=== PATIENT | female | born 1935 | race African-American/Black ===

== ENCOUNTER 2018-01-13 10:00 | Emergency (ER) | payer MEDICARE, BC ==
[~2018-01-13] VITALS: Ht 170.2 cm; Wt 78.0 kg
[~2018-01-13 10:00] MED LIST: HYDR25TA PO; RIVA10TA PO; VALS160T2 PO
[2018-01-13] MEDS ORDERED: SODIUM CHLORIDE 0.9% 1,000 ML IV ONE (10:22)
[2018-01-13 10:36] LABS: BASOPHILS % 1.5 % (0.0-2.0); HEMATOCRIT. 31.5 % (36.0-48.0); HEMOGLOBIN. 10.1 g/dL (12.0-16.0); LYMPHOCYTES % 25.4 % (20.0-50.0); MEAN CORPUSCULAR HEMOGLOBIN 24.9 pg (28.0-32.0); MEAN CORPUSCULAR VOLUME 77.4 fL (81.0-99.0); MEAN PLATELET VOLUME 8.1 fl (7.4-10.4); MONOCYTES % 10.3 % (2.0-8.0); NEUTROPHILS % 60.8 % (40.0-76.0); PLATELET 324 x1000/uL (130-400); RED BLOOD CELL COUNT 4.07 mill/uL (4.2-5.4); RED CELL DISTRIBUTION WIDTH 17.3 % (11.6-14.6)
[2018-01-13 10:41] LABS: CHLORIDE 104 mEq/L (98-107)
[2018-01-13 10:45] LABS: PARTIAL THROMBOPLASTIN TIME 25.6 sec (23.4-31.0); PROTHROMBIN TIME 10.8 sec (9.4-11.6)
[2018-01-13 14:48] VITALS: BP 113/59
== END 2018-01-13 14:51 | disposition left against medical advice (07) ==
LOC: ER 10:17
DX: R55 Syncope and collapse (principal); I48.91 Unspecified atrial fibrillation; Z91.19 Patient's noncompliance with other medical treatment and regimen; Z96.659 Presence of unspecified artificial knee joint
CPT/HCPCS: 36415; 70450; 71045; 80053; 83690; 84484; 85025; 85610; 85730; 93005; 99285; J7030